=== PATIENT | male | born 1950 | race Caucasian/White ===

== ENCOUNTER 2022-03-29 02:50 | Inpatient (IN) | payer BC, MEDICARE ==
[2022-03-29] MEDS ORDERED: Ondansetron 4 MG/2 ML SDV IVPUSH ONE (03:24)
[2022-03-29] MEDS ORDERED: HYDROmorphone 0.5 MG/0.5 ML Syringe IVPUSH ONE ×2 (03:24→04:11)
[2022-03-29 03:39] LABS: ESTIMATED GFR 50 (>60)
[2022-03-29] MEDS ORDERED: Meropenem 1 GM in Sodium Chloride 0.9% 100 ML IV ONE (04:42)
[2022-03-29] MEDS ORDERED: Ketorolac 30 MG/ML SDV IVPUSH ONE (04:44)
[2022-03-29] MEDS ORDERED: Sodium Chloride 0.9% 1,000 ML IV ONE (04:47)
[2022-03-29] MEDS ORDERED: Ondansetron 4 MG/2 ML SDV IV PRN (07:16)
[2022-03-29] MEDS ORDERED: HYDROmorphone 0.5 MG/0.5 ML Syringe IVPUSH PRN (07:20)
[2022-03-29 08:00] LABS: CORONAVIRUS COVID-19 NAA NEGATIVE (NEGATIVE)
[2022-03-29] MEDS: Sodium Chloride 0.9% 1,000 ML IV SCH ×3 (08:39→22:37)
[2022-03-29] MEDS: Meropenem 1 GM in Sodium Chloride 0.9% 100 ML IV SCH ×2 (12:27→20:32)
[2022-03-30] MEDS: Meropenem 1 GM in Sodium Chloride 0.9% 100 ML IV SCH (05:11)
[2022-03-30] MEDS ORDERED: Ropivacaine 40 ML, dexAMETHasone 8 MG, EPINEPHrine 0.4 MG, Sodium Chloride 0.9% 37.6 ML NERVRT SCH ×4 (07:00)
[2022-03-30] MEDS ORDERED: fentaNYL 250 MCG/5 ML SDV ONE ×2 (07:25→08:05)
[2022-03-30] MEDS ORDERED: Neostigmine Methylsulfate 1 MG/ML 5 ML Syringe ONE (07:27)
[2022-03-30] MEDS ORDERED: Dexamethasone 4 MG/ML SDV ONE (07:27)
[2022-03-30] MEDS ORDERED: Succinylcholine 200 MG/10 ML MDV ONE (07:27)
[2022-03-30] MEDS ORDERED: Rocuronium 50 MG/5 ML Vial ONE (07:27)
[2022-03-30] MEDS ORDERED: Glycopyrrolate 0.2 MG/ML 5 ML MDV ONE (07:27)
[2022-03-30] MEDS ORDERED: Ondansetron 4 MG/2 ML SDV ONE (07:27)
[2022-03-30] MEDS ORDERED: Propofol 200 MG/20 ML SDV ONE (07:27)
[2022-03-30] MEDS ORDERED: Labetalol 20 MG/4 ML Syringe ONE (08:09)
[2022-03-30] MEDS ORDERED: Lactated Ringers 1,000 ML ONE (08:44)
[2022-03-30] MEDS ORDERED: Lidocaine 1% with EPINEPHrine 1:100,000 50 ML MDV ONE (10:08)
[2022-03-30] MEDS ORDERED: Bupivacaine 0.5% 50 ML MDV ONE (10:08)
[2022-03-30] MEDS ORDERED: Acetaminophen 500 MG Tab PO SCH (10:30)
[2022-03-30] MEDS ORDERED: HYDROmorphone 1 MG/ML Syringe IV PRN (11:00)
[2022-03-30] MEDS: oxyCODONE 5 MG Tab PO PRN ×2 (12:30→22:14)
[2022-03-30] MEDS: Meropenem 500 MG in Sodium Chloride 0.9% 50 ML IV SCH ×2 (12:31→17:44)
[2022-03-30] MEDS: Acetaminophen 500 MG Tab PO SCH ×2 (13:25→20:26)
[2022-03-30] MEDS: Dextrose 5%-Lactated Ringers 1,000 ML IV SCH (16:20)
[2022-03-30] MEDS: Docusate Sodium 100 MG Cap PO PRN (20:26)
[2022-03-31] MEDS: Dextrose 5%-Lactated Ringers 1,000 ML IV SCH (01:06)
[2022-03-31] MEDS: Meropenem 500 MG in Sodium Chloride 0.9% 50 ML IV SCH ×3 (01:07→13:50)
[2022-03-31] MEDS: Acetaminophen 500 MG Tab PO SCH ×2 (01:09→07:49)
[2022-03-31 04:57] LABS: ESTIMATED GFR 55 (>60)
[2022-03-31] MEDS: Docusate Sodium 100 MG Cap PO PRN (07:49)
[2022-03-31] MEDS: Potassium Phos in 0.9 % NaCl 15 MMOL in Premix Bag 1 BAG IV SCH ×4 (08:57→11:21)
[2022-03-31] MEDS ORDERED: Magnesium Hydroxide 400 MG/5 ML Susp 30 ML Cup PO ONE (09:00)
[2022-03-31 09:37] LABS: HEMOGLOBIN A1C 5.8 % (4.5-6.2)
== END 2022-03-31 14:00 | disposition home or self-care (01) | DRG 419 ==
LOC: SUATTDRO 02:50 → JP.ED 02:50 → JP.MS 07:16
PROVIDERS: ADMIT Family Medicine; ATTEND Hospitalist
PROC: 0FT44ZZ Resection of Gallbladder, Percutaneous Endoscopic Approach (ICD-10-PCS; principal; 2022-03-30)
PROC: 0WQF4ZZ Repair Abdominal Wall, Percutaneous Endoscopic Approach (ICD-10-PCS; 2022-03-30)
DX: K80.01 Calculus of gallbladder with acute cholecystitis with obstruction (principal); R10.10 Upper abdominal pain, unspecified; K42.9 Umbilical hernia without obstruction or gangrene; N42.9 Disorder of prostate, unspecified; G47.30 Sleep apnea, unspecified; Z20.822 Contact with and (suspected) exposure to COVID-19; Z88.1 Allergy status to other antibiotic agents; Z98.890 Other specified postprocedural states
CPT/HCPCS: 0241U; 36415; 74176; 76705; 80053; 83036; 83605; 83690; 83735; 84100; 85025; 87070; 87075; 87205; 88304; 96365; 96375; 96376; 99284; 99285-25; A9270-GY; J0171; J0330; J1100; J1170; J1885; J2185; J2405; J2704; J2710; J2795; J3010; J3490; J7030; J7120; J7121